=== PATIENT | female | born 1950 | race Caucasian/White ===

== ENCOUNTER 2017-05-21 18:49 | Emergency (ER) | payer MEDICARE, BC ==
[2017-05-21 19:07] VITALS: BP 146/59
[2017-05-21] MEDS ORDERED: Sodium Chloride 0.9% 10 ML Syringe FLUSH PRN (19:27)
[2017-05-21] MEDS ORDERED: Sodium Chloride 0.9% 1,000 ML IV SCH ×2 (19:30→20:30)
--- NOTE | 2017-05-21 22:10 | EDM.PDOC ---
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 She said she got really hot. Afterwards she took a shower and then drank some fluids. She had some vomiting after that. Now she feels very cold thirsty and has some nausea. She describes her self is healthy. She does take aspirin and a statin. She denies any problems with eyes ears nose or throat. There is no chest pain palpitations cough or shortness of breath. She denies any abdominal pain. No urinary symptoms. 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 Social & Family History - Tobacco Use Smoking Status *Q: Never Smoker - Caffeine Use Caffeine Use: Reports: Coffee - Recreational Drug Use Recreational Drug Use: No ED ROS GENERAL - Review of Systems Review Of Systems: See Below Constitutional: Reports: Chills, Diaphoresis HEENT: Reports: No Symptoms Respiratory: Reports: No Symptoms Cardiovascular: Reports: No Symptoms Endocrine: Reports: No Symptoms GI/Abdominal: Reports: Nausea, Vomiting : Reports: No Symptoms Musculoskeletal: Reports: No Symptoms Skin: Reports: No Symptoms ED EXAM, GENERAL - Physical Exam Exam: See Below Exam Limited By: No Limitations General Appearance: Alert, WD/WN, No Apparent Distress Eye Exam: Bilateral Eye: Normal Inspection Nose: Normal Inspection Throat/Mouth: Normal Oropharynx Head: Atraumatic Neck: Normal Inspection Respiratory/Chest: Lungs Clear, Normal Breath Sounds Cardiovascular: Normal Peripheral Pulses, Regular Rate, Rhythm, No Murmur Back Exam: Normal Inspection Extremities: Normal Inspection Neurological: Alert, Oriented Psychiatric: Normal Affect Skin Exam: Warm, Dry Course - Vital Signs Last Recorded V/S: Last Vital Signs Temp 36.6 C 05/21/17 19:07 Pulse 76 05/21/17 19:07 Resp 16 05/21/17 19:07 BP 146/59 H 05/21/17 19:07 Pulse Ox 96 05/21/17 19:07 - Orders/Labs/Meds Orders: Active Orders 24 hr Category Date Time Status EKG Documentation Completion [RC] ASDIRECTED Care 05/21/17 20:19 Active Chest 2V [CR] Urgent Exams 05/21/17 20:19 Taken Sodium Chloride 0.9% [Normal Saline] 1,000 ml Med 05/21/17 19:30 Active IV ASDIRECTED Sodium Chloride 0.9% [Normal Saline] 1,000 ml Med 05/21/17 20:30 Active IV ASDIRECTED Sodium Chloride 0.9% [Saline Flush] Med 05/21/17 19:27 Active 10 ml FLUSH ASDIRECTED PRN Saline Lock Insert [OM.PC] Urgent Oth 05/21/17 19:27 Ordered EKG 12 Lead [EK] Urgent Ther 05/21/17 20:18 Ordered Medication Orders Sodium Chloride (Normal Saline) 1,000 mls @ 999 mls/hr IV ASDIRECTED JAMILA Last Admin: 05/21/17 19:56 Dose: 999 mls/hr Sodium Chloride (Normal Saline) 1,000 mls @ 999 mls/hr IV ASDIRECTED JAMILA Last Admin: 05/21/17 21:54 Dose: 999 mls/hr Sodium Chloride (Saline Flush) 10 ml FLUSH ASDIRECTED PRN PRN Reason: Keep Vein Open Last Admin: 05/21/17 19:56 Dose: 10 ml Labs: Laboratory Tests 05/21/17 05/21/17 05/21/17 Range/Units 19:41 19:41 20:28 WBC 17.4 H (4.5-11.0) K/uL RBC 4.82 (3.30-5.50) M/uL Hgb 14.5 (12.0-15.0) g/dL Hct 43.8 (36.0-48.0) % MCV 91 (80-98) fL MCH 30 (27-31) pg MCHC 33 (32-36) % Plt Count 241 (150-400) K/uL Neut % (Auto) 87 H (36-66) % Lymph % (Auto) 5 L (24-44) % [place] % (Auto) 7 H (2-6) % Eos % (Auto) 1 L (2-4) % Baso % (Auto) 0 (0-1) % Sodium 142 (140-148) mmol/L Potassium 3.9 (3.6-5.2) mmol/L Chloride 105 (100-108) mmol/L Carbon Dioxide 29 (21-32) mmol/L Anion Gap 7.9 (5.0-14.0) mmol/L BUN 23 H (7-18) mg/dL Creatinine 0.9 (0.6-1.0) mg/dL Est Cr Clr Drug Dosing 57.56 mL/min Estimated GFR (MDRD) > 60 (>60) Glucose 124 H (74-106) mg/dL Calcium 9.0 (8.5-10.1) mg/dL Total Bilirubin 0.3 (0.2-1.0) mg/dL AST 23 (15-37) U/L ALT 31 (12-78) U/L Alkaline Phosphatase 59 (46-116) U/L Total Protein 7.8 (6.4-8.2) g/dL Albumin 3.9 (3.4-5.0) g/dL Globulin 3.9 H (2.3-3.5) g/dL Albumin/Globulin Ratio 1.0 L (1.2-2.2) Urine Color Yellow Urine Appearance Clear Urine pH 5.0 (4.5-8.0) Ur Specific [place] 1.030 (1.008-1.030) Urine Protein Trace (NEGATIVE) mg/dL Urine Glucose (UA) Normal (NEGATIVE) mg/dL Urine Ketones Negative (NEGATIVE) mg/dL Urine Occult Blood Negative (NEGATIVE) Urine Nitrite Negative (NEGATIVE) Urine Bilirubin Small (NEGATIVE) Urine Urobilinogen 1 (NORMAL) mg/dL Ur Leukocyte Esterase Large (NEGATIVE) Urine RBC 0-5 (0-5) Urine WBC 5-10 H (0-5) Ur Epithelial Cells Few Amorphous Sediment Rare Urine Bacteria Moderate Urine Mucus Numerous Urine Other Meds: Medications Generic Name Dose Route Start Last Admin Trade Name Freq PRN Reason Stop Dose Admin Sodium Chloride 1,000 mls @ 999 mls/hr 05/21/17 19:30 05/21/17 19:56 Normal Saline IV 999 mls/hr ASDIRECTED JAMILA Administration Sodium Chloride 1,000 mls @ 999 mls/hr 05/21/17 20:30 05/21/17 21:54 Normal Saline IV 999 mls/hr ASDIRECTED JAMILA Administration Sodium Chloride 10 ml 05/21/17 19:27 05/21/17 19:56 Saline Flush FLUSH 10 ml ASDIRECTED PRN Administration Keep Vein Open - Radiology Interpretation Free Text/Narrative:: Chest x-ray shows normal heart size normal lung markings normal bony and soft tissues - Re-Assessments/Exams Free Text/Narrative Re-Assessment/Exam: 05/21/17 22:14 An IV was established. She received 2 L IV normal saline. Afterwards she said she felt much better and ready to go home. An EKG shows a sinus rhythm at 76 bpm there is a borderline short [place] interval borderline right axis deviation T waves are flat in her anterior leads but I don 't see any T-wave inversions. There are no ST changes. She does have a prolonged QT interval. Departure - Departure Time of Disposition: 22:15 Disposition: Home, Self-Care 01 Condition: Fair Clinical Impression: Heat exhaustion due to water depletion - Discharge Information Referrals: PCP,None [Primary Care Provider] - Additional Instructions: Be sure to drink plenty of liquids. Rest all day tomorrow in a cool place. There are some minor changes on your EKG that may be related to the dehydration and heat exhaustion. This is nothing to worry about but you should discuss it with your DrNeil and have the EKG repeated within the next couple of weeks. Once you have had a heat related illness such as this you or more susceptible to a repeat injury so just be careful be sure you drink plenty of liquids and avoid the heat - My Orders Last 24 Hours: My Active Orders 05/21/17 19:27 Sodium Chloride 0.9% [Saline Flush] 10 ml FLUSH ASDIRECTED PRN Saline Lock Insert [OM.PC] Urgent 05/21/17 19:30 Sodium Chloride 0.9% [Normal Saline] 1,000 ml IV ASDIRECTED 05/21/17 20:18 EKG 12 Lead [EK] Urgent 05/21/17 20:19 EKG Documentation Completion [RC] ASDIRECTED Chest 2V [CR] Urgent 05/21/17 20:30 Sodium Chloride 0.9% [Normal Saline] 1,000 ml IV ASDIRECTED - Assessment/Plan Last 24 Hours: My Active Orders 05/21/17 19:27 Sodium Chloride 0.9% [Saline Flush] 10 ml FLUSH ASDIRECTED PRN Saline Lock Insert [OM.PC] Urgent 05/21/17 19:30 Sodium Chloride 0.9% [Normal Saline] 1,000 ml IV ASDIRECTED 05/21/17 20:18 EKG 12 Lead [EK] Urgent 05/21/17 20:19 EKG Documentation Completion [RC] ASDIRECTED Chest 2V [CR] Urgent 05/21/17 20:30 Sodium Chloride 0.9% [Normal Saline] 1,000 ml IV ASDIRECTED
--- NOTE | 2017-05-22 09:20 | CR ---
Heart size within normal limits. Pulmonary vasculature within normal limits. No focal consolidation.
== END 2017-05-21 22:28 | disposition home or self-care (01) ==
LOC: JP.ED 18:49
DX: T67.3XXA Heat exhaustion, anhydrotic, initial encounter (principal); H54.7 Unspecified visual loss; E78.00 Pure hypercholesterolemia, unspecified; Z79.82 Long term (current) use of aspirin; X58.XXXA Exposure to other specified factors, initial encounter
CPT/HCPCS: 36415; 71020; 80053; 81001; 85025; 93005; 96360; 96361; 99284; J7040; J7050; 93010

== ENCOUNTER 2021-05-19 12:07 | Inpatient (IN) | payer BC, MEDICARE ==
[2021-05-19] MEDS ORDERED: Sodium Chloride 0.9% 10 ML Syringe FLUSH PRN (12:32)
[2021-05-19] MEDS ORDERED: Sodium Chloride 0.9% 10 ML Syringe FLUSH ONE (12:39)
[2021-05-19] MEDS ORDERED: Iopamidol 612 MG/ML 500 ML Multipack Bottle IV ONE (12:39)
--- NOTE | 2021-05-19 12:39 | EDM.PDOC ---
ED HPI GENERAL MEDICAL PROBLEM - General Chief Complaint: Abdominal Pain Stated Complaint: ABD PAIN Time Seen by Provider: 05/19/21 12:25 Source of Information: Reports: Patient, Old Records, Provider History Limitations: Reports: No Limitations - History of Present Illness INITIAL COMMENTS - FREE TEXT/NARRATIVE: 70 yo female with a pHx of diverticulitis presents with RLQ pain much like with her prior hx of diverticulitis. Has a pHx of situs inversus. Says she has 2 spleens. Had one episode of vomiting at the clinic where she was initially seen before referral to the ER. Got Zofran 4 mg IM at the clinic. Says her pain has been coming on for several days and is getting worse. No fever. Had a CBC, BMP, and UA done at the clinic that was all normal except for a mildly elevated WBC ct. Onset: Gradual Duration: Day(s):, Getting Worse Location: Reports: Abdomen Quality: Reports: Ache Severity: Moderate Improves with: Reports: Rest Worsens with: Reports: Movement Context: Reports: Other (See HPI) Associated Symptoms: Reports: Nausea/Vomiting. 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 Social & Family History - Tobacco Use Tobacco Use Status *Q: Never Tobacco User - Caffeine Use Caffeine Use: Reports: Coffee - Recreational Drug Use Recreational Drug Use: No ED ROS GENERAL - Review of Systems Review Of Systems: See Below Constitutional: Reports: No Symptoms HEENT: Reports: No Symptoms Respiratory: Reports: No Symptoms Cardiovascular: Reports: No Symptoms Endocrine: Reports: No Symptoms GI/Abdominal: Reports: Abdominal Pain, Nausea, Vomiting. Denies: Black Stool, Bloody Stool, Constipation, Diarrhea, Decreased Appetite, Difficulty Swallowing, Distension, Hematemesis, Hematochezia : Reports: No Symptoms Musculoskeletal: Reports: No Symptoms Skin: Reports: No Symptoms Neurological: Reports: No Symptoms Psychiatric: Reports: No Symptoms ED EXAM, GI/ABD - Physical Exam Exam: See Below Exam Limited By: No Limitations General Appearance: Alert, WD/WN, No Apparent Distress Eyes: Bilateral: Normal Appearance Ears: Normal External Exam, Normal Canal, Hearing Grossly Normal Nose: Normal Inspection, No Blood Throat/Mouth: Normal Inspection, Normal Lips, Normal Voice, No Airway Compromise Head: Atraumatic, Normocephalic Neck: Normal Inspection Respiratory/Chest: No Respiratory Distress, Lungs Clear, Normal Breath Sounds, No Accessory Muscle Use Cardiovascular: Regular Rate, Rhythm, No Edema GI/Abdominal Exam: Soft, No Distention, Guarding, Rebound, Tender (RLQ). No: Non-Tender, Distended, Rigid Back Exam: Normal Inspection. No: CVA Tenderness (R), CVA Tenderness (L) Extremities: Normal Inspection, Normal Range of Motion, Non-Tender, No Pedal Edema Neurological: Alert, Oriented, CN II-XII Intact, Normal Cognition, No Motor/Sensory Deficits Psychiatric: Normal Affect, Normal Mood Skin Exam: Warm, Dry, Intact, Normal Color, No Rash Course - Vital Signs Text/Narrative:: Cristobal Ordoñez called at 1400h Cate Weinberg called @ 1803h Dr. Stephens called @ 1805h Last Recorded V/S: Last Vital Signs Temp 36.8 C 05/20/21 03:09 Pulse 66 05/20/21 03:09 Resp 18 05/20/21 03:09 BP 112/46 L 05/20/21 03:12 Pulse Ox 95 05/20/21 07:05 - Orders/Labs/Meds Orders: Active Orders 24 hr Category Date Time Status Lactated Ringers [Ringers, Lactated] 1,000 ml Med 05/19/21 14:00 Active IV ASDIRECTED Sodium Chloride 0.9% [Saline Flush] Med 05/19/21 12:32 Active 10 ml FLUSH ASDIRECTED PRN Saline Lock Insert [OM.PC] Routine Oth 05/19/21 12:32 Ordered Medication Orders Acetaminophen (Acetaminophen 325 Mg Tab) 650 mg PO Q4H PRN PRN Reason: Fever Last Admin: 05/19/21 22:17 Dose: 650 mg Documented by: FOSTER Bisacodyl (Bisacodyl 5 Mg Tab) 5 mg PO DAILY PRN PRN Reason: Constipation Last Admin: 05/19/21 22:17 Dose: 5 mg Documented by: FOSTER Docusate Sodium (Docusate Sodium 100 Mg Cap) 100 mg PO BID PRN PRN Reason: Constipation Last Admin: 05/19/21 22:17 Dose: 100 mg Documented by: FOSTER Lactated Ringer's (Ringers, Lactated) 1,000 mls @ 125 mls/hr IV ASDIRECTED JAMILA Last Admin: 05/19/21 20:35 Dose: 125 mls/hr Documented by: Infusion: 05/19/21 20:35 Dose: 125 mls/hr Documented by: Admin: 05/19/21 14:06 Dose: 125 mls/hr Documented by: KLAUS Piperacillin/Tazobactam/ (Dextrose 4.5 gm/ Premix) 100 mls @ 100 mls/hr IV Q6H JAMILA Lorazepam (Lorazepam 2 Mg/Ml Sdv) 1 mg IV Q6H PRN PRN Reason: Nausea/Vomiting Morphine Sulfate (Morphine 2 Mg/Ml Syringe) 2 mg IVPUSH Q2H PRN PRN Reason: Pain (severe 7-10) Ondansetron HCl (Ondansetron 4 Mg Tab.Dis) 4 mg PO Q6H PRN PRN Reason: Nausea able to take PO Pantoprazole Sodium (Pantoprazole 40 Mg Vial) 40 mg IV BEDTIME JAMILA Last Admin: 05/19/21 22:18 Dose: 40 mg Documented by: FOSTER Sodium Chloride (Sodium Chloride 0.9% 10 Ml Syringe) 10 ml FLUSH ASDIRECTED PRN PRN Reason: Keep Vein Open Last Admin: 05/19/21 18:44 Dose: 10 ml Documented by: KLAUS Labs: Laboratory Tests 05/19/21 Range/Units 14:44 SARS-CoV-2 RNA (DIOMEDES) Negative (NEGATIVE) Meds: Medications Generic Name Dose Route Start Last Admin Trade Name Freq PRN Reason Stop Dose Admin Acetaminophen 650 mg 05/19/21 20:59 05/19/21 22:17 Acetaminophen 325 Mg Tab PO 650 mg Q4H PRN Administration Fever Bisacodyl 5 mg 05/19/21 20:21 05/19/21 22:17 Bisacodyl 5 Mg Tab PO 5 mg DAILY PRN Administration Constipation Docusate Sodium 100 mg 05/19/21 20:21 05/19/21 22:17 Docusate Sodium 100 Mg Cap PO 100 mg BID PRN Administration Constipation Lactated Ringer's 1,000 mls @ 125 mls/hr 05/19/21 14:00 05/19/21 20:35 Ringers, Lactated IV 125 mls/hr ASDIRECTED JAMILA Administration Piperacillin/Tazobactam/ 100 mls @ 100 mls/hr 05/20/21 10:00 Dextrose 4.5 gm/ Premix IV Q6H JAMILA Lorazepam 1 mg 05/19/21 20:21 Lorazepam 2 Mg/Ml Sdv IV Q6H PRN Nausea/Vomiting Morphine Sulfate 2 mg 05/19/21 20:21 Morphine 2 Mg/Ml Syringe IVPUSH Q2H PRN Pain (severe 7-10) Ondansetron HCl 4 mg 05/19/21 20:21 Ondansetron 4 Mg Tab.Dis PO Q6H PRN Nausea able to take PO Pantoprazole Sodium 40 mg 05/19/21 21:00 05/19/21 22:18 Pantoprazole 40 Mg Vial IV 40 mg BEDTIME JAMILA Administration Sodium Chloride 10 ml 05/19/21 12:32 05/19/21 18:44 Sodium Chloride 0.9% 10 Ml Syringe FLUSH 10 ml ASDIRECTED PRN Administration Keep Vein Open Discontinued Medications Generic Name Dose Route Start Last Admin Trade Name Freq PRN Reason Stop Dose Admin Hydromorphone HCl 0.5 mg 05/19/21 15:42 05/19/21 16:01 Hydromorphone 0.5 Mg/0.5 Ml Syringe IVPUSH 05/19/21 15:43 0.5 mg ONETIME ONE Administration Hydromorphone HCl 1 mg 05/19/21 18:36 05/19/21 18:43 Hydromorphone 1 Mg/Ml Syringe IVPUSH 05/19/21 18:37 1 mg ONETIME ONE Administration Sodium Chloride 74 mls @ 3.4 mls/sec 05/19/21 12:45 05/19/21 12:58 Normal Saline IV 05/19/21 12:46 3.4 mls/sec ASDIRECTED JAMILA Administration Piperacillin/Tazobactam/ 50 mls @ 100 mls/hr 05/19/21 14:00 05/19/21 14:06 Dextrose 3.375 gm/ Premix IV 05/19/21 14:29 100 mls/hr ONETIME ONE Administration Piperacillin Sod/Tazobactam 100 mls @ 100 mls/hr 05/19/21 21:00 05/20/21 03:09 Sod 4.5 gm/ Sodium Chloride IV 100 mls/hr Q6H JAMILA Administration Iopamidol 111 ml 05/19/21 12:39 05/19/21 12:57 Iopamidol 612 Mg/Ml 500 Ml Multipack Bottle IV 05/19/21 12:40 111 ml ONETIME ONE Administration Sodium Chloride 10 ml 05/19/21 12:39 05/19/21 12:57 Sodium Chloride 0.9% 10 Ml Syringe FLUSH 05/19/21 12:40 10 ml ONETIME ONE Administration - Radiology Interpretation Free Text/Narrative:: CT abd/pelvis with IV contrast- Impression: 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 There is focal segmental thickening and pericolonic inflammation of the sigmoid colon within the right lower quadrant with likely a small contained perforation commensurate with mildly complicated diverticulitis. Mild thickening of the gastric antrum which can be associated with peptic ulcer disease. Otherwise, no definite acute intra-abdominal abnormality is appreciated. Please note that all CT scans at this facility use dose modulation, iterative reconstruction, and/or weight-based dosing when appropriate to reduce radiation dose to as low as reasonably achievable. Dictated by Ba Richardson MD @ 05/19/2021 1:49:[address] Results Date: 05/19/21 CT Results Time: 13:51 Departure - Departure Time of Disposition: 18:00 Disposition: Admitted As Inpatient 66 Condition: Fair Clinical Impression: Perforation of sigmoid colon due to diverticulitis - Discharge Information *PRESCRIPTION DRUG MONITORING PROGRAM REVIEWED*: Not Applicable *COPY OF PRESCRIPTION DRUG MONITORING REPORT IN PATIENT ALANNAH: Not Applicable Sepsis Event Note (ED) - Evaluation Sepsis Screening Result: No Definite Risk - My Orders Last 24 Hours: My Active Orders 05/19/21 12:32 Sodium Chloride 0.9% [Saline Flush] 10 ml FLUSH ASDIRECTED PRN Saline Lock Insert [OM.PC] Routine 05/19/21 14:00 Lactated Ringers [Ringers, Lactated] 1,000 ml IV ASDIRECTED - Assessment/Plan Last 24 Hours: My Active Orders 05/19/21 12:32 Sodium Chloride 0.9% [Saline Flush] 10 ml FLUSH ASDIRECTED PRN Saline Lock Insert [OM.PC] Routine 05/19/21 14:00 Lactated Ringers [Ringers, Lactated] 1,000 ml IV ASDIRECTED
--- NOTE | 2021-05-19 13:50 | CRLCT ---
For Patients: As a result of the Century Cures Act, medical imaging exams and procedure reports are released immediately into your electronic medical record. You may view this report before your referring provider. If you have questions, please contact your health care provider. Indication: Right lower quadrant pain, history of situs inversus Technique: Volumetric multidetector CT images of the abdomen and pelvis were obtained after the administration of intravenous contrast. 111 cc Isovue-300 low osmolar intravenous contrast Comparison: None available. Findings: There is bibasilar atelectasis. There is diffuse situs inversus with complete mirrored reversal of all of the visceral organs. The liver is preserved in attenuation and enhancement without focal abnormality. The portal vein is patent. The gallbladder is unremarkable without evidence of radiopaque calculus. There is no significant common biliary ductal dilatation or abrupt cut off. The spleen is normal in enhancement and size. There is mild focal thickening of the gastric antrum which can be associated with peptic ulcer disease otherwise the stomach is decompressed. There is mild pancreatic atrophy. The adrenal glands are unremarkable. There are parapelvic renal cystic changes of the bilateral kidneys with preserved corticomedullary differentiation. There is no evidence of distal obstructive uropathy. There is focal segmental thickening of the sigmoid colon in the right lower quadrant with marked pericolonic inflammatory change and likely a small contained perforation. The appendix is unremarkable. There is no significant mesenteric, retroperitoneal, or pelvic sidewall lymph nodes. The aorta is non aneurysmal with scattered atherosclerotic calcifications. The solid pelvic viscera are grossly unremarkable. There is a trace amount of fluid seen in the dependent pelvis otherwise there is no intra-abdominal free air or free fluid. The anterior abdominal wall is intact without significant hernias. The lumbar vertebral body heights are grossly maintained with minimal endplate Schmorl`s defects. There is no evidence of displaced fracture or dislocation. 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 There is focal segmental thickening and pericolonic inflammation of the sigmoid colon within the right lower quadrant with likely a small contained perforation commensurate with mildly complicated diverticulitis. Mild thickening of the gastric antrum which can be associated with peptic ulcer disease. Otherwise, no definite acute intra-abdominal abnormality is appreciated. Please note that all CT scans at this facility use dose modulation, iterative reconstruction, and/or weight-based dosing when appropriate to reduce radiation dose to as low as reasonably achievable. Dictated by Ba Richardson MD @ 05/19/2021 1:49:00 PM (Electronically Signed)
[2021-05-19] MEDS ORDERED: Piperacillin/Tazobactam/Dext 3.375 GM in Premix Bag 1 BAG IV ONE (14:00)
[2021-05-19] MEDS ORDERED: Piperacillin/Tazobactam 3.375 GM in Sodium Chloride 0.9% 50 ML IV SCH (14:00)
[2021-05-19] MEDS: Lactated Ringers 1,000 ML IV SCH ×2 (14:06→20:35)
[2021-05-19] MEDS ORDERED: HYDROmorphone 0.5 MG/0.5 ML Syringe IVPUSH ONE (15:42)
[2021-05-19] MEDS ORDERED: HYDROmorphone 1 MG/ML Syringe IVPUSH ONE (18:36)
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
[2021-05-19] MEDS ORDERED: Ondansetron 4 MG Tab.DIS PO PRN (20:21)
[2021-05-19] MEDS ORDERED: Morphine 2 MG/ML SYRINGE IVPUSH PRN (20:21)
[2021-05-19] MEDS ORDERED: LORazepam 2 MG/ML SDV IV PRN (20:21)
[2021-05-19] MEDS ORDERED: Pantoprazole 40 MG Vial IV SCH (21:00)
[2021-05-19] MEDS: Docusate Sodium 100 MG Cap PO PRN (22:17)
[2021-05-19] MEDS: Bisacodyl 5 MG Tab PO PRN (22:17)
[2021-05-19] MEDS: Acetaminophen 325 MG Tab PO PRN (22:17)
[2021-05-19] MEDS: Piperacillin/Tazobactam 4.5 GM in Sodium Chloride 0.9% 100 ML IV SCH (22:34)
[2021-05-20] MEDS: Piperacillin/Tazobactam 4.5 GM in Sodium Chloride 0.9% 100 ML IV SCH (03:09)
[2021-05-20] MEDS: Lactated Ringers 1,000 ML IV SCH (08:25)
[2021-05-20] MEDS ORDERED: Piperacillin/Tazobactam/Dext 4.5 GM in Premix Bag 1 BAG IV SCH (10:00)
[2021-05-20] MEDS ORDERED: traMADol 50 MG Tab PO PRN (11:19)
[2021-05-20] MEDS ORDERED: LORazepam 2 MG/ML SDV IV PRN (11:19)
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
[2021-05-20] MEDS: Acetaminophen 325 MG Tab PO PRN (15:31)
[2021-05-20] MEDS: Piperacillin/Tazobactam/Dext 3.375 GM in Premix Bag 1 BAG IV SCH ×2 (15:32→21:31)
[2021-05-20] MEDS: Pantoprazole 40 MG Tab.CR PO SCH (21:30)
[2021-05-21] MEDS: Piperacillin/Tazobactam/Dext 3.375 GM in Premix Bag 1 BAG IV SCH ×4 (03:36→21:00)
[2021-05-21] MEDS: Bisacodyl 5 MG Tab PO PRN (07:36)
[2021-05-21] MEDS: Docusate Sodium 100 MG Cap PO PRN (07:36)
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
[2021-05-21] MEDS: Pantoprazole 40 MG Tab.CR PO SCH (20:57)
[2021-05-22] MEDS: Piperacillin/Tazobactam/Dext 3.375 GM in Premix Bag 1 BAG IV SCH ×2 (04:03→09:31)
[2021-05-22 09:35] VITALS: BP 130/62; PULSE 69
--- NOTE | 2021-05-22 12:14 | PCM.DCSUM1 ---
Discharge Summary - Hospital Course Brief History: Ms. Ureña is a 70-year-old woman who was admitted with abdominal pain and elevated white count secondary to sigmoid diverticulitis. - Discharge Data Discharge Date: 05/22/21 Discharge Disposition: Home, Self-Care 01 Condition: Fair - Referral to Home Health Primary Care Physician: PCP None - Discharge Diagnosis/Problem(s) (1) Perforation of sigmoid colon due to diverticulitis SNOMED Code(s): 2092014493496281 ICD Code: K57.20 - DVTRCLI OF LG INT W PERFORATION AND ABSCESS W/O BLEEDING Status: Acute Priority: High Current Visit: Yes - Patient Summary/Data Hospital Course: Ms. Ureña is a 70-year-old woman who was admitted with a diagnosis of diverticulitis. She has a known history of diverticulosis as well as previous episodes of diverticulitis. She experienced right lower quadrant abdominal pain for about a week prior to coming in for evaluation. On assessment white blood cell count was found to be elevated and CT scan of the abdomen and pelvis did document sigmoid diverticulitis with associated very small contained perforation. 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 She was admitted to the hospital and given IV fluids as well as pain medication. She was started on IV antibiotic therapy with Zosyn. Over the next 3 days of her hospital stay she remained on IV antibiotics. White blood cell count normalized and she had been afebrile for at least 24 hours prior to discharge. She continued to experience some right lower quadrant abdominal pain but states that this is present on a continuous basis for the past few years. She will be discharged home on oral antibiotic therapy with Augmentin twice daily for an additional 11 days. Activity will be as tolerated and she will be on a soft low residue diet. Follow-up appointment will be scheduled with primary care provider within 1 week. She is instructed to return immediately to the emergency department if she experiences recurrent fevers or increase in pain. - Patient Instructions Diet: GI Soft/Low Residue/Low Fiber Activity: As Tolerated Other/Special Instructions: Please schedule follow-up appointment with primary care provider within 1 week. - Discharge Plan *PRESCRIPTION DRUG MONITORING PROGRAM REVIEWED*: Not Applicable *COPY OF PRESCRIPTION DRUG MONITORING REPORT IN PATIENT ALANNAH: Not Applicable Prescriptions/Med Rec: Amoxicillin/Potassium Clav [Augmentin 875-125 Tablet] 1 each PO BID #22 tablet Home Medications: Home Meds Aspirin 81 mg PO DAILY 05/21/17 [History] atorvaSTATin [Lipitor] 10 mg PO BEDTIME 05/19/21 [History] Amoxicillin/Potassium Clav [Augmentin 875-125 Tablet] 1 each PO BID #22 tablet 05/22/21 [Rx] Referrals: Mary Harmon MD [Ordering Only Provider] - - Discharge Summary/Plan Comment DC Time >30 min.: No Total # of Minutes for Discharge Time: 15 - Patient Data Vitals - Most Recent: Last Vital Signs Temp 97.2 F 05/22/21 01:32 Pulse 69 05/22/21 09:35 Resp 16 05/22/21 09:35 BP 130/62 05/22/21 09:35 Pulse Ox 96 05/22/21 09:35 Weight - Most Recent: 164 lb I&O - Last 24 hours: Intake & Output 05/21/21 05/22/21 05/22/21 22:59 06:59 14:59 Intake Total 710 350 Balance 710 350 Lab Results - Last 24 hrs: Laboratory Results - last 24 hr 05/22/21 05/22/21 Range/Units 05:30 05:30 WBC 4.6 (4.5-11.0) K/uL RBC 4.15 (3.30-5.50) M/uL Hgb 12.2 (12.0-15.0) g/dL Hct 37.9 (36.0-48.0) % MCV 91 (80-98) fL MCH 29 (27-31) pg MCHC 32 (32-36) % Plt Count 210 (150-400) K/uL C-Reactive Protein 5.05 H (0.0-0.3) mg/dL THERESE Results - Last 24 hrs: Microbiology 05/19/21 21:25 Aerobic Blood Culture - Preliminary Blood - Arm, Right NO GROWTH AFTER 2 DAYS Anaerobic Blood Culture - Preliminary NO GROWTH AFTER 2 DAYS 05/19/21 21:15 Aerobic Blood Culture - Preliminary Blood - Arm, Right NO GROWTH AFTER 2 DAYS Anaerobic Blood Culture - Preliminary NO GROWTH AFTER 2 DAYS Med Orders - Current: Current Medications Acetaminophen (Acetaminophen 325 Mg Tab) 650 mg PO Q4H PRN PRN Reason: Fever Last Admin: 05/20/21 15:31 Dose: 650 mg Documented by: Bisacodyl (Bisacodyl 5 Mg Tab) 5 mg PO DAILY PRN PRN Reason: Constipation Last Admin: 05/21/21 07:36 Dose: 5 mg Documented by: Docusate Sodium (Docusate Sodium 100 Mg Cap) 100 mg PO BID PRN PRN Reason: Constipation Last Admin: 05/21/21 07:36 Dose: 100 mg Documented by: Piperacillin/Tazobactam/ (Dextrose 3.375 gm/ Premix) 50 mls @ 100 mls/hr IV Q6H [facility] Last Admin: 05/22/21 09:31 Dose: 100 mls/hr Documented by: Lorazepam (Lorazepam 2 Mg/Ml Sdv) 0.5 mg IV Q6H PRN PRN Reason: Nausea/Vomiting Morphine Sulfate (Morphine 2 Mg/Ml Syringe) 2 mg IVPUSH Q2H PRN PRN Reason: Pain (severe 7-10) Ondansetron HCl (Ondansetron 4 Mg Tab.Dis) 4 mg PO Q6H PRN PRN Reason: Nausea able to take PO Pantoprazole Sodium (Pantoprazole 40 Mg Tab.Cr) 40 mg PO BEDTIME [facility] Last Admin: 05/21/21 20:57 Dose: 40 mg Documented by: Sodium Chloride (Sodium Chloride 0.9% 10 Ml Syringe) 10 ml FLUSH ASDIRECTED PRN PRN Reason: Keep Vein Open Last Admin: 05/19/21 18:44 Dose: 10 ml Documented by: Tramadol HCl (Tramadol 50 Mg Tab) 50 mg PO Q6H PRN PRN Reason: Pain (moderate 4-6) Discontinued Medications Hydromorphone HCl (Hydromorphone 0.5 Mg/0.5 Ml Syringe) 0.5 mg IVPUSH ONETIME ONE Stop: 05/19/21 15:43 Last Admin: 05/19/21 16:01 Dose: 0.5 mg Documented by: Hydromorphone HCl (Hydromorphone 1 Mg/Ml Syringe) 1 mg IVPUSH ONETIME ONE Stop: 05/19/21 18:37 Last Admin: 05/19/21 18:43 Dose: 1 mg Documented by: Sodium Chloride (Normal Saline) 74 mls @ 3.4 mls/sec IV ASDIRECTED [facility] Stop: 05/19/21 12:46 Last Admin: 05/19/21 12:58 Dose: 3.4 mls/sec Documented by: Lactated Ringer's (Ringers, Lactated) 1,000 mls @ 125 mls/hr IV ASDIRECTED [facility] Last Admin: 05/20/21 08:25 Dose: 125 mls/hr Documented by: Piperacillin/Tazobactam/ (Dextrose 3.375 gm/ Premix) 50 mls @ 100 mls/hr IV ONETIME ONE Stop: 05/19/21 14:29 Last Admin: 05/19/21 14:06 Dose: 100 mls/hr Documented by: Piperacillin Sod/Tazobactam (Sod 4.5 gm/ Sodium Chloride) 100 mls @ 100 mls/hr IV Q6H [facility] Last Admin: 05/20/21 03:09 Dose: 100 mls/hr Documented by: Piperacillin/Tazobactam/ (Dextrose 4.5 gm/ Premix) 100 mls @ 100 mls/hr IV Q6H [facility] Last Admin: 05/20/21 09:46 Dose: 100 mls/hr Documented by: Iopamidol (Iopamidol 612 Mg/Ml 500 Ml Multipack Bottle) 111 ml IV ONETIME ONE Stop: 05/19/21 12:40 Last Admin: 05/19/21 12:57 Dose: 111 ml Documented by: Lorazepam (Lorazepam 2 Mg/Ml Sdv) 1 mg IV Q6H PRN PRN Reason: Nausea/Vomiting Pantoprazole Sodium (Pantoprazole 40 Mg Vial) 40 mg IV BEDTIME [facility] Last Admin: 05/19/21 22:18 Dose: 40 mg Documented by: Sodium Chloride (Sodium Chloride 0.9% 10 Ml Syringe) 10 ml FLUSH ONETIME ONE Stop: 05/19/21 12:40 Last Admin: 05/19/21 12:57 Dose: 10 ml Documented by: - Exam Quality Assessment: Reports: DVT Prophylaxis General: Reports: Alert, Oriented, Cooperative, No Acute Distress Lungs: Reports: Clear to Auscultation, Normal Respiratory Effort Cardiovascular: Reports: Regular Rate, Regular Rhythm, No Murmurs GI/Abdominal Exam: Soft, No Organomegaly, Tender. No: Distended, Guarding, Rigid, Rebound Extremities: Non-Tender, No Pedal Edema
== END 2021-05-22 13:15 | disposition home or self-care (01) | DRG 392 ==
LOC: JP.ED 12:07 → JP.MS 19:28
PROVIDERS: ADMIT Internal Medicine; ATTEND Hospitalist
DX: K57.20 Diverticulitis of large intestine with perforation and abscess without bleeding (principal); Z79.82 Long term (current) use of aspirin; H54.7 Unspecified visual loss; E78.00 Pure hypercholesterolemia, unspecified; Z79.899 Other long term (current) drug therapy; F43.21 Adjustment disorder with depressed mood; Z20.822 Contact with and (suspected) exposure to COVID-19
CPT/HCPCS: 74177; 96365; 96375; 96376; 99285; J1170 ×2; J2543; J7120; Q9967; U0002; 36415; 80048; 80053; 81001; 85025; 85027; 86140; 87040; 94762; A9270-GY; C9113

== ENCOUNTER 2022-08-06 07:01 | Day surgery (SDC) | payer MEDICARE ==
[2022-08-06] MEDS ORDERED: Propofol 200 MG/20 ML SDV ONE (07:13)
[2022-08-06] MEDS ORDERED: fentaNYL 50 MCG/ML SDV ONE (07:13)
[2022-08-06] MEDS ORDERED: Midazolam 1 MG/ML 2 ML SDV ONE (07:13)
[2022-08-06] MEDS ORDERED: Lactated Ringers 1,000 ML IV SCH (07:30)
[2022-08-06] MEDS ORDERED: Ondansetron 4 MG/2 ML SDV ONE (08:16)
[2022-08-06 09:19] VITALS: BP 128/56; PULSE 58
== END 2022-08-06 09:20 | disposition home or self-care (01) ==
LOC: JP.SDS 07:01
PROVIDERS: ATTEND Student in an Organized Health Care Education/Training Program
DX: R19.5 Other fecal abnormalities (principal); E78.5 Hyperlipidemia, unspecified; Z79.899 Other long term (current) drug therapy
CPT/HCPCS: 45378; J2250; J2405; J2704; J3010; J7120

== ENCOUNTER 2022-08-07 07:34 | Day surgery (SDC) | payer MEDICARE ==
[2022-08-07] MEDS ORDERED: Lactated Ringers 1,000 ML IV SCH (08:15)
[2022-08-07] MEDS ORDERED: fentaNYL 50 MCG/ML SDV ONE (08:28)
[2022-08-07] MEDS ORDERED: Propofol 200 MG/20 ML SDV ONE (08:28)
[2022-08-07] MEDS ORDERED: Dexamethasone 4 MG/ML SDV ONE (09:33)
[2022-08-07] MEDS ORDERED: Ondansetron 4 MG/2 ML SDV ONE (09:33)
[2022-08-07 10:52] VITALS: BP 157/60; PULSE 84
[2022-08-07] MEDS ORDERED: Barium Sulfate 105% w/v Susp 1,900 ML Bottle RECTAL ONE (10:52)
== END 2022-08-07 12:45 | disposition home or self-care (01) ==
LOC: JP.SDS 07:34
PROVIDERS: ATTEND Student in an Organized Health Care Education/Training Program
DX: R19.5 Other fecal abnormalities (principal); K57.30 Diverticulosis of large intestine without perforation or abscess without bleeding; Z79.899 Other long term (current) drug therapy
CPT/HCPCS: 74270; 74270-26; J1100; J2405; J2704; J3010; J7120

== ENCOUNTER 2025-01-07 12:08 | Emergency (ER) | payer MEDICARE ==
[2025-01-07] MEDS ORDERED: Sodium Chloride 0.9% 10 ML Syringe FLUSH PRN (12:52)
[2025-01-07 13:10] LABS: BASOPHILS ABSOLUTE AUTO 0.04 K/uL (0.00-0.10); BASOPHILS PERCENT AUTO 0.2 % (0.1-1.3); EOSINOPHILS PERCENT AUTO 0.1 % (0.0-5.4); HEMATOCRIT 38.7 % (34.3-46.0); HEMOGLOBIN 12.5 g/dL (11.2-15.5); IMMATURE GRAN ABSOLUTE AUTO 0.07 K/uL (0.00-0.23); IMMATURE GRAN PERCENT AUTO 0.4 % (0.0-0.7); LYMPHOCYTES ABSOLUTE AUTO 0.91 K/uL (0.8-3.3); LYMPHOCYTES PERCENT AUTO 5.6 % (11.4-47.7); MEAN CORPUSCULAR HGB CONC 32.3 g/dL (31.6-35.5); MEAN CORPUSCULAR VOLUME 86.8 fL (81.4-99.0); MONOCYTES ABSOLUTE AUTO 0.86 K/uL (0.20-0.90); MONOCYTES PERCENT AUTO 5.3 % (3.3-12.6); NEUTROPHILS ABSOLUTE AUTO 14.34 K/uL (1.0-7.6); NEUTROPHILS PERCENT AUTO 88.4 % (40.0-78.1); PLATELET COUNT,PLT 253 K/uL (130-375); RED BLOOD CELL COUNT 4.46 M/uL (3.77-5.24); WHITE BLOOD CELL COUNT,WBC 16.2 K/uL (3.2-11.0)
[2025-01-07 13:11] LABS: EOSINOPHILS ABSOLUTE AUTO 0.02 K/uL (0.00-0.40)
[2025-01-07 13:34] LABS: ALANINE AMINOTRANSFERASE,ALT 25 U/L (12-78); ALBUMIN 3.6 g/dL (3.4-5.0); ALKALINE PHOSPHATASE 63 U/L (46-116); ANION GAP 8.7 mmol/L (5.0-14.0); ASPARTATE AMNIOTRANSFERASE,AST 19 U/L (15-37); BILIRUBIN TOTAL 0.4 mg/dL (0.2-1.0); BLOOD UREA NITROGEN,BUN 21 mg/dL (7-18); CALCIUM 9.5 mg/dL (8.5-10.1); CARBON DIOXIDE,CO2 29 mmol/L (21-32); CHLORIDE,CL 102 mmol/L (100-108); CREATININE 0.8 mg/dL (0.6-1.0); EST CRCL DRUG DOSING (CG) 57.75 mL/min; ESTIMATED GFR 77 mL/min (>60); GLUCOSE RANDOM 123 mg/dL (74-106); POTASSIUM,K 4.4 mmol/L (3.6-5.2); PROTEIN TOTAL,TP 7.1 g/dL (6.4-8.2); SODIUM,NA 140 mmol/L (140-148); TROPONIN I HIGH SENSITIVITY 6.8 pg/mL (<=60.3)
[2025-01-07 14:37] LABS: APPEARANCE,URINE CLEAR (CLEAR); BILIRUBIN,URINE NEGATIVE (NEGATIVE); COLOR,URINE YELLOW (YELLOW); GLUCOSE,URINE NEGATIVE (NEGATIVE); KETONES,URINE NEGATIVE (NEGATIVE); LEUKOCYTE ESTERASE,URINE SMALL (NEGATIVE); NITRITE,URINE NEGATIVE (NEGATIVE); OCCULT BLOOD,URINE TRACE-INTACT (NEGATIVE); PROTEIN,URINE NEGATIVE (NEGATIVE); UROBILINOGEN,URINE 0.2 EU/dL (0.2-1.0)
[2025-01-07 14:52] LABS: AMORPHOUS SEDIMENT,URINE NOT SEEN; BACTERIA,URINE FEW; EPITHELIAL CELLS,URINE FEW; MUCUS,URINE NOT SEEN; RBC,URINE 0-5 (0-5); WBC,URINE 0-5 (0-5)
[2025-01-07 15:25] VITALS: BP 151/65; PULSE 64
== END 2025-01-07 15:33 | disposition home or self-care (01) ==
LOC: JP.ED 12:08
DX: R10.13 Epigastric pain (principal); E78.00 Pure hypercholesterolemia, unspecified; Z79.899 Other long term (current) drug therapy
CPT/HCPCS: 36415; 74177; 74177-26; 80053; 81001; 83605; 83690; 84484; 85025; 99284

== ENCOUNTER 2025-02-25 20:46 | Emergency (ER) | payer MEDICARE ==
[2025-02-25 21:14] VITALS: BP 143/70; PULSE 76
[2025-02-25 21:43] LABS: BASOPHILS ABSOLUTE AUTO 0.04 K/uL (0.00-0.10); BASOPHILS PERCENT AUTO 0.3 % (0.1-1.3); EOSINOPHILS ABSOLUTE AUTO 0.14 K/uL (0.00-0.40); EOSINOPHILS PERCENT AUTO 0.9 % (0.0-5.4); HEMATOCRIT 38.9 % (34.3-46.0); HEMOGLOBIN 12.7 g/dL (11.2-15.5); IMMATURE GRAN ABSOLUTE AUTO 0.05 K/uL (0.00-0.23); IMMATURE GRAN PERCENT AUTO 0.3 % (0.0-0.7); LYMPHOCYTES ABSOLUTE AUTO 1.14 K/uL (0.8-3.3); LYMPHOCYTES PERCENT AUTO 7.7 % (11.4-47.7); MEAN CORPUSCULAR HEMOGLOBIN 28.6 pg (31.6-35.5); MEAN CORPUSCULAR HGB CONC 32.6 g/dL (31.6-35.5); MEAN CORPUSCULAR VOLUME 87.6 fL (81.4-99.0); MONOCYTES PERCENT AUTO 7.4 % (3.3-12.6); NEUTROPHILS ABSOLUTE AUTO 12.42 K/uL (1.0-7.6); NEUTROPHILS PERCENT AUTO 83.4 % (40.0-78.1); PLATELET COUNT,PLT 208 K/uL (130-375); RED BLOOD CELL COUNT 4.44 M/uL (3.77-5.24); WHITE BLOOD CELL COUNT,WBC 14.9 K/uL (3.2-11.0)
[2025-02-25 22:04] LABS: A/G RATIO 1.1 (1.2-2.2); ALANINE AMINOTRANSFERASE,ALT 24 U/L (12-78); ALBUMIN 3.6 g/dL (3.4-5.0); ALKALINE PHOSPHATASE 58 U/L (46-116); ANION GAP 7.6 mmol/L (5.0-14.0); ASPARTATE AMNIOTRANSFERASE,AST 17 U/L (15-37); BILIRUBIN TOTAL 0.3 mg/dL (0.2-1.0); BLOOD UREA NITROGEN,BUN 30 mg/dL (7-18); C-REACTIVE PROTEIN < 0.50 mg/dL (<0.50); CALCIUM 9.2 mg/dL (8.5-10.1); CARBON DIOXIDE,CO2 29 mmol/L (21-32); CHLORIDE,CL 104 mmol/L (100-108); CREATININE 0.8 mg/dL (0.6-1.0); EST CRCL DRUG DOSING (CG) 55.52 mL/min; ESTIMATED GFR 77 mL/min (>60); GLUCOSE RANDOM 114 mg/dL (74-106); POTASSIUM,K 4.1 mmol/L (3.6-5.2); PROTEIN TOTAL,TP 6.9 g/dL (6.4-8.2); SODIUM,NA 141 mmol/L (140-148)
== END 2025-02-25 22:30 | disposition home or self-care (01) ==
LOC: JP.ED 20:46
DX: R11.2 Nausea with vomiting, unspecified (principal); E78.00 Pure hypercholesterolemia, unspecified; Z79.899 Other long term (current) drug therapy
CPT/HCPCS: 36415; 80053; 83605; 83690; 85025; 86140; 99283; 99284